=== PATIENT | male | born 1960 | race Caucasian/White ===

== ENCOUNTER → 2016-10-31 | Outpatient (REF) ==
[~2016-10-31] MED LIST: SYNTHROID0.05 MG/TA PO
== END ==
LOC: WSOH 09:16
DX: Z00.00 Encounter for general adult medical examination without abnormal findings (principal)

== ENCOUNTER → 2016-10-31 | Outpatient (REF) | LOC: WSOH 09:26 | DX: Z02.89 Encounter for other administrative examinations (principal) ==

== ENCOUNTER → 2021-11-12 | Outpatient (CLI) | payer BC | LOC: COL.RAD 12:49 | DX: N28.9 Disorder of kidney and ureter, unspecified (principal); R16.1 Splenomegaly, not elsewhere classified | CPT/HCPCS: Q9967 ==

== ENCOUNTER → 2022-07-22 | Outpatient (CLI) | payer BC | LOC: COL.RAD 08:21 | DX: K44.9 Diaphragmatic hernia without obstruction or gangrene (principal); K57.30 Diverticulosis of large intestine without perforation or abscess without bleeding | CPT/HCPCS: Q9967 ==